=== PATIENT | male | born 1960 | race Caucasian/White ===

== ENCOUNTER 2017-10-14 07:27 | Day surgery (SDC) | payer OTHER ==
[2017-10-09 13:21] VITALS: BMI 38.7
[2017-10-14] MEDS ORDERED: PROPOFOL 20 ML ONE ×2 (07:45)
[2017-10-14] MEDS ORDERED: LIDOCAINE HCL/PF 2% SDV 5ML VIAL ONE ×2 (07:45→08:26)
[2017-10-14 07:47] VITALS: TEMP 97.6
[2017-10-14 10:05] VITALS: BP 92/60; PULSE 72
--- NOTE | 2017-10-15 10:20 | PATH ---
Surgical Pathology Report Patient Name: GERMANIA ACOSTA [facility]. Rec. #: [id number] /Age/Gender: 1960 (Age: 57) / M Account: [id number] Location: Taken: 10/14/2017 Received: 10/14/2017 Reported: 10/15/2017 Physicians: Som Poole M.D. Specimen(s) Received A: RIGHT COLON B: HEPATIC FLEXTURE C: TRANSVERSE D: SPLENIC FLEXTURE E: LEFT COLON F: DISTAL SIGMOID Clinical History Preoperative diagnoses: Rule out colon cancer Postoperative diagnosis: Polyps Final Diagnosis A. COLON, RIGHT, BIOPSY: TUBULAR ADENOMA. B. COLON, HEPATIC FLEXURE, BIOPSY: TWO PORTIONS OF TUBULAR ADENOMA. C. COLON, TRANSVERSE, BIOPSY: TUBULAR ADENOMA. D. COLON, SPLENIC FLEXURE, BIOPSY: TUBULAR ADENOMA. E. COLON, LEFT, BIOPSY: TUBULAR ADENOMA. F. COLON, DISTAL SIGMOID, BIOPSY: TUBULAR ADENOMA. Electronically Signed Ming Baker M.D. Gross Description A. Received in formalin, labeled "right colon" is a bassett, irregular portion of soft tissue measuring 0.4 cm. in greatest dimension. The specimen is submitted in toto in one cassette. B. Received in formalin, labeled "hepatic flexure" are 2 bassett, polypoid portions of soft tissue measuring 0.7 and 0.8 cm. in greatest dimension. The specimens are submitted in toto in one cassette. C. Received in formalin, labeled "transverse" is a bassett, irregular portion of soft tissue measuring 0.4 cm. in greatest dimension. The specimen is submitted in toto in one cassette. D. Received in formalin, labeled "splenic flexure" is a bassett, polypoid portion of soft tissue measuring 0.5 cm. in greatest dimension. The specimen is submitted in toto in one cassette. E. Received in formalin, labeled "left colon" is a bassett, polypoid portion of soft tissue measuring 0.5 cm. in greatest dimension. The specimen is submitted in toto in one cassette. F. Received in formalin, labeled "distal sigmoid" is a bassett, polypoid portion of soft tissue measuring 0.7 cm. in greatest dimension. The specimen is submitted in toto in one cassette. DL/10/14/2017 saudi10/14/2017
== END 2017-10-14 10:15 | disposition home or self-care (01) ==
LOC: FASU-ENDO 07:27
PROVIDERS: ATTEND Internal Medicine Gastroenterology
PROC: 0DBM8ZX Excision of Descending Colon, Via Natural or Artificial Opening Endoscopic, Diagnostic (ICD-10-PCS; 2017-10-14)
PROC: 0DBL8ZX Excision of Transverse Colon, Via Natural or Artificial Opening Endoscopic, Diagnostic (ICD-10-PCS; 2017-10-14)
PROC: 0DBK8ZX Excision of Ascending Colon, Via Natural or Artificial Opening Endoscopic, Diagnostic (ICD-10-PCS; principal; 2017-10-14 09:04)
PROC: 0DBN8ZX Excision of Sigmoid Colon, Via Natural or Artificial Opening Endoscopic, Diagnostic (ICD-10-PCS; 2017-10-14 09:04)
DX: Z12.11 Encounter for screening for malignant neoplasm of colon (principal); Z80.0 Family history of malignant neoplasm of digestive organs; D12.2 Benign neoplasm of ascending colon; D12.3 Benign neoplasm of transverse colon; D12.4 Benign neoplasm of descending colon; D12.5 Benign neoplasm of sigmoid colon; K57.30 Diverticulosis of large intestine without perforation or abscess without bleeding
CPT/HCPCS: 88305-TC

== ENCOUNTER 2018-10-13 06:56 | Day surgery (SDC) | payer OTHER ==
[2018-10-08 14:35] VITALS: BMI 40.1
[2018-10-13] MEDS ORDERED: PROPOFOL 20 ML ONE ×2 (08:55)
[2018-10-13 09:51] VITALS: TEMP 98
[2018-10-13 10:18] VITALS: BP 105/53; PULSE 79
--- NOTE | 2018-10-15 16:27 | PATH ---
Surgical Pathology Report Patient Name: GERMANIA ACOSTA [facility]. Rec. #: [id number] /Age/Gender: 1960 (Age: 58) / M Account: [id number] Location: [facility] Taken: 10/13/2018 Received: 10/13/2018 Reported: 10/15/2018 Physicians: Som Poole M.D. Specimen(s) Received A: RIGHT COLON B: SIGMOID C: RECTOSIGMOID Clinical History Rule out colon cancer Postoperative diagnosis: Polyps, diverticulosis Final Diagnosis A. COLON, RIGHT, POLYP, BIOPSY: TUBULAR ADENOMA. B. SIGMOID COLON, POLYP, BIOPSY: HYPERPLASTIC POLYP. C. RECTOSIGMOID COLON, BIOPSY: HYPERPLASTIC POLYP. Electronically Signed Lindsey Aguilar M.D. Gross Description A. Received in formalin labeled "polyp right colon," is a 1.0 x 0.9 x 0.3 cm aggregate of bassett, irregular to polypoid soft tissue fragments. The formalin is filtered and the specimen is entirely submitted in one cassette. B. Received in formalin, labeled "polyp sigmoid" is a bassett, irregular portion of soft tissue measuring 0.7 cm. in greatest dimension. The specimen is submitted in toto in one cassette. C. Received in formalin, labeled "polyp rectosigmoid" is a bassett, irregular portion of soft tissue measuring 0.2 cm. in greatest dimension. The specimen is submitted in toto in one cassette. /10/14/2018 saudi10/14/2018
== END 2018-10-13 10:18 | disposition home or self-care (01) ==
LOC: FASU-ENDO 06:56
PROVIDERS: ATTEND Internal Medicine Gastroenterology
PROC: 0DBN8ZX Excision of Sigmoid Colon, Via Natural or Artificial Opening Endoscopic, Diagnostic (ICD-10-PCS; 2018-10-13)
PROC: 0DBK8ZX Excision of Ascending Colon, Via Natural or Artificial Opening Endoscopic, Diagnostic (ICD-10-PCS; principal; 2018-10-13 09:10)
DX: Z86.010 Personal history of colon polyps (principal); D12.2 Benign neoplasm of ascending colon; K63.5 Polyp of colon; K57.30 Diverticulosis of large intestine without perforation or abscess without bleeding
CPT/HCPCS: 88305-TC